=== PATIENT | female | born 1960 | race Caucasian/White ===

== ENCOUNTER 2018-04-27 13:00 | Outpatient (CLI) | payer BC | END 2018-04-27 19:27 | disposition home or self-care (01) | LOC: SMA 13:00 | PROVIDERS: ATTEND Family Medicine | DX: Z12.31 Encounter for screening mammogram for malignant neoplasm of breast (principal); Z77.22 Contact with and (suspected) exposure to environmental tobacco smoke (acute) (chronic) | CPT/HCPCS: 71046-TC; 77067 ==

== ENCOUNTER 2018-05-19 10:30 | Outpatient (CLI) | payer BC | END 2018-05-19 21:03 | disposition home or self-care (01) | LOC: SMA 10:30 | PROVIDERS: ATTEND Family Medicine | DX: R92.1 Mammographic calcification found on diagnostic imaging of breast (principal) | CPT/HCPCS: 77065 ==